=== PATIENT | male | born 1970 | race Caucasian/White ===

== ENCOUNTER 2017-04-01 14:56 | Emergency (ER) | payer OTHER ==
[2017-04-01 15:10] VITALS: BP 122/96
[2017-04-01] MEDS ORDERED: TETRACAINE 0.5% OPHTH SOLUTION 4ML BOTTLE. ONE (15:16)
[2017-04-01] MEDS ORDERED: FLUORESCEIN 1MG EYE STRIP. ONE (15:16)
[2017-04-01] MEDS ORDERED: NEO/5DRO OD (16:13)
[2017-04-01] MEDS ORDERED: TRAM-48 PO (16:13)
--- NOTE | 2017-04-01 16:13 | PHYS DOC ---
Past History Past Medical History: No Pertinent History Smoking: Cigarettes Adult General Chief Complaint Chief Complaint: EYE PROBLEMS HPI HPI 47-year-old male patient states he was working with wood and dust while wearing eye glasses and had foreign body sensation in left eye and dropped his IV without improvement of condition. Patient complaining of photophobia and foreign body sensation and redness of left eye without other injuries. Review of Systems Review of Systems Constitutional: Denies fever or chills [] Eyes: Denies change in visual acuity, reports redness, eye pain [] HENT: Denies nasal congestion or sore throat [] Respiratory: Denies cough or shortness of breath [] Cardiovascular: No additional information not addressed in HPI [] GI: Denies abdominal pain, nausea, vomiting, bloody stools or diarrhea [] : Denies dysuria or hematuria [] Musculoskeletal: Denies back pain or joint pain [] Integument: Denies rash or skin lesions [] Neurologic: Denies headache, focal weakness or sensory changes [] Endocrine: Denies polyuria or polydipsia [] All other systems were reviewed and found to be within normal limits, except as documented in this note. Current Medications Current Medications Current Medications Medications (Trade) Dose Ordered Sig/Edgar Start Time Stop Time Status Last Admin Dose Admin Fluorescein Sodium (Ful-Karey 1mg) 1 strip STK-MED ONCE 04/01/17 15:16 04/01/17 15:17 DC Tetracaine HCl (Tetracaine) 40 drop STK-MED ONCE 04/01/17 15:16 04/01/17 15:17 DC Physical Exam Physical Exam Constitutional: Well developed, well nourished,mild distress, non-toxic appearance. [] HENT: Normocephalic, atraumatic, bilateral external ears normal, oropharynx moist, no oral exudates, nose normal. [] Eyes: PERRLA, EOMI, left conjunctival erythema without corneal foreign body or laceration with fluorescein test, fluorescein uptake in the scleral area, no discharge. [] Neck: Normal range of motion, no tenderness, supple, no stridor. [] Cardiovascular:Heart rate regular rhythm, no murmur [] Lungs & Thorax: Bilateral breath sounds clear to auscultation [] Neurologic: Alert and oriented X 3, normal motor function, normal sensory function, no focal deficits noted. [] Psychologic: Affect normal, judgement normal, mood normal. [] EKG EKG [] Radiology/Procedures Radiology/Procedures [] Course & Med Decision Making Course & Med Decision Making Evaluation of patient in ER showed 47-year-old female patient with foreign body sensation and conjunctival erythema in left eye. Patient had negative fluorescein test intracorneal area with positive uptake in the scleral area. Patient felt better after applying tetracaine. Patient informed to follow with weasand trimmer in one or 2 days if not getting better. Plan discharge patient home with prescription of ophthalmic antibiotic and tramadol. Dragon Disclaimer Dragon Disclaimer This electronic medical record was generated, in whole or in part, using a voice recognition dictation system. Departure Departure: Impression: Primary Impression: Acute conjunctivitis Additional Impressions: Tobacco abuse Tobacco abuse counseling Disposition: HOME, SELF-CARE (At 1611) Condition: IMPROVED Referrals: PCP,UNKNOWN (PCP) Patient Instructions: Conjunctivitis, Chemical Additional Instructions: Follow-up with weasand trimmer in one or 2 days if not getting better Scripts Anjel/Polymyx B Sulf/Dexameth (MAXITROL EYE DROPS) 5 Ml Drops.susp 2 DROP OD QID for 7 Days, #5 ML Prov: ANABELA HERRERA MD 04/01/17 Tramadol Hcl (ULTRAM) 50 Mg Tablet 50 MG PO PRN Q6HRS Y for PAIN, #14 TAB Prov: ANABELA HERRERA MD 04/01/17 Problem Qualifiers ANABELA HERRERA MD Apr 01, 2017 16:13
== END 2017-04-01 16:24 | disposition home or self-care (01) ==
LOC: ER 14:56
DX: H10.32 Unspecified acute conjunctivitis, left eye (principal); F17.210 Nicotine dependence, cigarettes, uncomplicated
CPT/HCPCS: 99283